=== PATIENT | male | born 1995 | race Caucasian/White ===

== ENCOUNTER 2021-10-22 19:26 | Emergency (ER) | payer BC, SELFPAY ==
--- NOTE | 2021-10-22 19:36 | USR_ITS ---
PROCEDURE INFORMATION: Exam: US Scrotum and Artery or Vein of the Abdominal and/or Reproductive Organs, Limited Scrotum Exam date and time: 10/22/2021 7:36 PM Age: 26 years old Clinical indication: Scrotum pain TECHNIQUE: Imaging protocol: Real-time ultrasound of the scrotum. Real-time duplex ultrasound scan of the arterial or venous flow with castillo scale, color Doppler flow and spectral waveform analysis with image documentation. Limited Duplex exam focused of the scrotum. Duplex images required to evaluate for torsion and other vascular conditions. COMPARISON: No relevant prior studies available. FINDINGS: Right testicle: There is normal blood flow in the right testicle. The right testicle measures 4.6 x 3.6 x 3.4 cm. Right testicular contour and parenchymal echotexture is normal. There is no mass. Left testicle: Left testicular contour and parenchymal echotexture is normal. There is no mass. There is normal blood flow in the left testicle. The left testicle measures 4.3 x 3.3 x 2.7 cm. Epididymides: The right epididymis is unremarkable. The left epididymis is unremarkable. Scrotum: There are prominent veins in the left hemiscrotum. US/US scrotum [id number] IMPRESSION: 1. Normal testicles. 2. Small left varicocele. Radiation Dose CTDIVOL = (mGy): DLP = (mGy-cm)
[2021-10-22 20:15] VITALS: BP 123/82; PULSE 129; RESP 34; TEMP 36.8; O2SAT 96; BMI 18.8
[2021-10-22 20:41] VITALS: RESP 30
[2021-10-22] MEDS: HYDROmorphone 1 mg/mL INJ 1 mL IVP (20:41)
[2021-10-22] MEDS: ondansetron 2 mg/ML SDV 2 mL 4 MG IVP (20:41)
--- NOTE | 2021-10-22 20:42 | W.ED.MALEGU ---
HPI - Male Genitourinary General: Chief complaint: Urogenital-Male Stated complaint: Pain In Scotum Time Seen by Provider: 10/22/21 20:28 History of Present Illness: Associated symptoms: Deny nausea or vomiting Review of Systems Const: Denies: fever(s), chills, body aches or change in appetite Eyes: Denies: blurry vision or eye discomfort ENMT: Denies: throat pain or dental pain Card: Denies: chest pain Resp: Denies: dyspnea GI: Denies: abdominal pain, nausea, vomiting or diarrhea : Reports: testicular pain Musc: Denies: neck pain or back pain Skin/Breast: Denies: rash Neuro: Denies: headache(s) Psych: Denies: depression Patrick/Lymph: Denies: easy bruising All/Imm: Denies: urticaria Course Vital Signs: Vital signs: Vital Signs Temperature 98.3 F 10/22/21 20:15 Pulse Rate 129 H 10/22/21 20:15 Respiratory Rate 30 H 10/22/21 20:41 Blood Pressure 123/82 10/22/21 20:15 Pulse Oximetry 96 10/22/21 20:15 MDM - Male MDM Narrative: Medical decision making narrative: Patient presents here of testicle pain does have varicocele CT shows possible obstruction to venous outflow from left kidney is no flank pain his pain is much improved here we will have him follow-up with urology start him on pain meds and have him return if worsening he understands and agrees to plan. Lab Data: Labs: Lab Results 10/22/21 10/22/21 20:20 20:20 WBC 8.8 10^3/uL 10^3/ uL (4.0-10.0) RBC 5.19 10^6/uL 10^6 /uL (4.1-5.3) Hgb 15.7 g/dL g/dL (11.7-16.6) Hct 44.3 % % (42.0-52.0) MCV 85.4 fl fl (80-94) MCH 30.3 pg pg (28.0-34.0) MCHC 35.4 g/dL g/dL (30.0-36.0) RDW 11.9 % L % (12.1-15.1) Plt Count 244 10^3/cmm 10^3 /cmm (130-400) MPV 10.5 fL H fL (7.4-10.4) Neut % (Auto) 68.2 % % Lymph % (Auto) 25.0 % % Jerome % (Auto) 4.6 % % Eos % (Auto) 1.4 % % Baso % (Auto) 0.6 % % Neut # (Auto) 5.99 10^3/uL 10^3 /uL (1.8-7.7) Lymph # (Auto) 2.2 10^3/uL 10^3/ uL (0.8-4.8) Jerome # (Auto) 0.4 10^3/uL 10^3/ uL (0.2-0.9) Eos # (Auto) 0.1 10^3/uL 10^3/ uL (0.0-0.8) Baso # (Auto) 0.1 10^3/uL 10^3/ uL (0.0-0.1) Nucleated RBC % (a uto) 0 % % Nucleated RBCs # 0.0 /100WBC /100W BC Sodium 140 mmol/L mmol/L (136-145) Potassium 3.6 mmol/L mmol/L (3.5-5.1) Chloride 101 mmol/L mmol/L (98-107) Carbon Dioxide 25 mmol/L mmol/L (22-29) Anion Gap 17.6 (5-19) BUN 12 mg/dL mg/dL (6-20) Creatinine 0.9 mg/dL mg/dL (0.7-1.2) GFR Calculation 103.7 mL/min mL/m in (90-130) Glucose 109 mg/dL mg/dL (65-115) Calculated Osmolal ity 290 mOsm/kg mOsm/ kg (285-295) Calcium 9.9 mg/dL mg/dL (8.5-10.5) Total Bilirubin 0.6 mg/dL mg/dL (0.15-1.2) AST 18 U/L U/L (0-40) ALT 21 U/L U/L (0-41) Alkaline Phosphata se 67 IU/L IU/L (40-130) Total Protein 7.7 g/dL g/dL (6.6-8.7) Albumin 4.9 g/dL g/dL (3.5-5.2) Globulin 2.8 g/dL g/dL (1.3-4.6) Imaging Data: US: Attestation: I personally reviewed and interpreted this imaging study as follows: Radiologist's impression: [facility] [place] [address] Ultrasound Report Signed Patient: Sha Harvey Unit #: [id number] : 1995 Age/Sex: 26 / M ADM Date: 10/22/21 Loc: ER Room/Bed: Attending Dr: Ordering Provider/Ordering MD: Raoul Cervantes MD Date of Service: 10/22/21 Procedure(s): US scrotum [id number] Accession Number(s): [id number] Report Number: [id number] PROCEDURE INFORMATION: Exam: US Scrotum and Artery or Vein of the Abdominal and/or Reproductive Organs, Limited Scrotum Exam date and time: 10/22/2021 7:36 PM Age: 26 years old Clinical indication: Scrotum pain TECHNIQUE: Imaging protocol: Real-time ultrasound of the scrotum. Real-time duplex ultrasound scan of the arterial or venous flow with castillo scale, color Doppler flow and spectral waveform analysis with image documentation. Limited Duplex exam focused of the scrotum. Duplex images required to evaluate for torsion and other vascular conditions. COMPARISON: No relevant prior studies available. FINDINGS: Right testicle: There is normal blood flow in the right testicle. The right testicle measures 4.6 x 3.6 x 3.4 cm. Right testicular contour and parenchymal echotexture is normal. There is no mass. Left testicle: Left testicular contour and parenchymal echotexture is normal. There is no mass. There is normal blood flow in the left testicle. The left testicle measures 4.3 x 3.3 x 2.7 cm. Epididymides: The right epididymis is unremarkable. The left epididymis is unremarkable. Scrotum: There are prominent veins in the left hemiscrotum. US/US scrotum [id number] IMPRESSION: 1. Normal testicles. 2. Small left varicocele. Radiation Dose CTDIVOL = (mGy): DLP = (mGy-cm) Dictated By: Miles Ortiz MD Signed By: Miles Ortiz MD Signed Date/Time: 10/22/212125 DD/ 35 CT Abd/Pel: Radiologist's impression: [facility] [address] [place] [address] CT Scan Report Signed Patient: Sha Harvey Unit #: [id number] : 1995 Age/Sex: 26 / M ADM Date: 10/22/21 Loc: ER Room/Bed: Attending Dr: Ordering Provider/Ordering MD: Raoul Cervantes MD Date of Service: 10/22/21 Procedure(s): CT abdomen pelvis w con* [id number] Accession Number(s): [id number] Report Number: [id number] PROCEDURE INFORMATION: Exam: CT Abdomen And Pelvis With Contrast Exam date and time: 10/22/2021 9:10 PM Age: 26 years old Clinical indication: Nausea and vomiting; Other: Scrotal pain; Patient HX: Severe left testicular pain with n/v. ; Additional info: Abd pain TECHNIQUE: Imaging protocol: Computed tomography of the abdomen and pelvis with contrast. Radiation optimization: All CT scans at this facility use at least one of these dose optimization techniques: automated exposure control; mA and/or kV adjustment per patient size (includes targeted exams where dose is matched to clinical indication); or iterative reconstruction. Contrast material: OMNI 300; Contrast volume: 95 ml; Contrast route: INTRAVENOUS (IV); COMPARISON: US scrotum [id number] 10/22/2021 9:09 PM RADIATION DOSE METRICS: Total DLP (mGy-cm): 1196.98 FINDINGS: Lungs: Lung bases are clear. Liver: The liver is normal. Gallbladder and bile ducts: The gallbladder is normal. There is no biliary dilation. Pancreas: The pancreas is unremarkable. Spleen: The spleen is unremarkable. Adrenal glands: The adrenal glands are unremarkable. Kidneys and ureters: There is a mildly delayed nephrogram on the left. There is mild asymmetric enlargement of the left kidney. There is no hydronephrosis or stones. Stomach and bowel: The stomach is unremarkable. The small bowel is nondilated. The colon is unremarkable. Appendix: The appendix is normal. Intraperitoneal space: There is no free air or significant intraperitoneal free fluid. Vasculature: The aorta is unremarkable. There is no aneurysm. There are venous collaterals in the left renal hilum. Small left varicocele is suspected. There is asymmetric contrast reflux into the left gonadal vein. 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 See axial series 2, image 21. Lymph nodes: There is no lymphadenopathy in the retroperitoneum, mesentery, pelvis or inguinal regions. Urinary bladder: The urinary bladder is unremarkable. Reproductive: The prostate and seminal vesicles are unremarkable. Bones/joints: Bones are unremarkable. Soft tissues: The abdominal wall is intact. CT/CT abdomen pelvis w con* [id number] IMPRESSION: 1. Suspect partial obstruction to venous outflow from the left kidney. 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 There are venous collaterals in the left renal hilum and contrast reflux into the left gonadal vein with a small left varicocele. 2. No renal vein thrombosis. Radiation Dose CTDIVOL = (mGy): DLP = 1196.98 (mGy-cm) Dictated By: Miles Ortiz MD Signed By: Miles Ortiz MD Signed Date/Time: 10/22/212154 DD/ 09 Discharge Plan Discharge Patient Disposition: Home Clinical Impression: Left varicocele Condition: Stable Prescriptions: New hydrocodone-acetaminophen 5-325 mg tablet 1 tab PO Q6H PRN (Reason: pain) Qty: 14 RF: 0 Discharge Orders: Discharge ED (Routine); Ordered 10/22/21 Ordered By: Raoul Cervantes Referrals: Leah Saldana FNP-C [Primary Care Provider] - Cory Hernández MD [Physician] - 1-3 days Discharge Diet: Advance as tolerated Discharge Activity: Resume usual activity Patient Instructions: Varicocele (ED), Testicle Pain (ED), Opioid Safety Coding Level of Care Code ED Distribution Superintendent for Rosalind Duarte
[2021-10-22 21:10] LABS: Basophils # 0.1 10^3/uL (0.0-0.1); Basophils % 0.6 %; Eosinophils # 0.1 10^3/uL (0.0-0.8); Eosinophils % 1.4 %; Hematocrit 44.3 % (42.0-52.0); Hemoglobin 15.7 g/dL (11.7-16.6); Lymphocytes # 2.2 10^3/uL (0.8-4.8); Mean Corpuscular HGB Conc 35.4 g/dL (30.0-36.0); Mean Corpuscular Hemoglobin 30.3 pg (28.0-34.0); Mean Corpuscular Volume 85.4 fl (80-94); Mean Platelet Volume 10.5 fL (7.4-10.4); Monocytes # 0.4 10^3/uL (0.2-0.9); Monocytes % 4.6 %; Neutrophils # 5.99 10^3/uL (1.8-7.7); Neutrophils % 68.2 %; Nucleated Red Blood Cells % 0 %; Platelet Count 244 10^3/cmm (130-400); Red Blood Count 5.19 10^6/uL (4.1-5.3); Red Cell Distribution Width 11.9 % (12.1-15.1); White Blood Count 8.8 10^3/uL (4.0-10.0)
--- NOTE | 2021-10-22 21:10 | CTR_ITS ---
PROCEDURE INFORMATION: Exam: CT Abdomen And Pelvis With Contrast Exam date and time: 10/22/2021 9:10 PM Age: 26 years old Clinical indication: Nausea and vomiting; Other: Scrotal pain; Patient HX: Severe left testicular pain with n/v. ; Additional info: Abd pain TECHNIQUE: Imaging protocol: Computed tomography of the abdomen and pelvis with contrast. Radiation optimization: All CT scans at this facility use at least one of these dose optimization techniques: automated exposure control; mA and/or kV adjustment per patient size (includes targeted exams where dose is matched to clinical indication); or iterative reconstruction. Contrast material: OMNI 300; Contrast volume: 95 ml; Contrast route: INTRAVENOUS (IV); COMPARISON: US scrotum [id number] 10/22/2021 9:09 PM RADIATION DOSE METRICS: Total DLP (mGy-cm): 1196.98 FINDINGS: Lungs: Lung bases are clear. Liver: The liver is normal. Gallbladder and bile ducts: The gallbladder is normal. There is no biliary dilation. Pancreas: The pancreas is unremarkable. Spleen: The spleen is unremarkable. Adrenal glands: The adrenal glands are unremarkable. Kidneys and ureters: There is a mildly delayed nephrogram on the left. There is mild asymmetric enlargement of the left kidney. There is no hydronephrosis or stones. Stomach and bowel: The stomach is unremarkable. The small bowel is nondilated. The colon is unremarkable. Appendix: The appendix is normal. Intraperitoneal space: There is no free air or significant intraperitoneal free fluid. Vasculature: The aorta is unremarkable. There is no aneurysm. There are venous collaterals in the left renal hilum. Small left varicocele is suspected. There is asymmetric contrast reflux into the left gonadal vein. 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 See axial series 2, image 21. Lymph nodes: There is no lymphadenopathy in the retroperitoneum, mesentery, pelvis or inguinal regions. Urinary bladder: The urinary bladder is unremarkable. Reproductive: The prostate and seminal vesicles are unremarkable. Bones/joints: Bones are unremarkable. Soft tissues: The abdominal wall is intact. CT/CT abdomen pelvis w con* [id number] IMPRESSION: 1. Suspect partial obstruction to venous outflow from the left kidney. 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 There are venous collaterals in the left renal hilum and contrast reflux into the left gonadal vein with a small left varicocele. 2. No renal vein thrombosis. Radiation Dose CTDIVOL = (mGy): DLP = 1196.98 (mGy-cm)
[2021-10-22 21:20] LABS: Alanine Aminotransferase 21 U/L (0-41); Albumin Level 4.9 g/dL (3.5-5.2); Alkaline Phosphatase 67 IU/L (40-130); Anion Gap 17.6 (5-19); Aspartate Amino Transferase 18 U/L (0-40); Blood Urea Nitrogen 12 mg/dL (6-20); Calcium 9.9 mg/dL (8.5-10.5); Carbon Dioxide 25 mmol/L (22-29); Chloride 101 mmol/L (98-107); Globulin 2.8 g/dL (1.3-4.6); Glomerular Filtration Rate 103.7 mL/min (90-130); Glucose 109 mg/dL (65-115); Osmolality Calculated 290 mOsm/kg (285-295); Potassium 3.6 mmol/L (3.5-5.1); Sodium 140 mmol/L (136-145); Total Bilirubin 0.6 mg/dL (0.15-1.2); Total Protein 7.7 g/dL (6.6-8.7)
[2021-10-22] MEDS: iohexol 300 mg/mL 100 mL Btl IV (21:25)
[2021-10-22] MEDS: sodium chloride 0.9% 1,000 ML 999 ML IV (21:46)
[2021-10-22 22:35] VITALS: BP 130/74; PULSE 81; RESP 18; O2SAT 98
--- NOTE | 2021-10-23 07:27 | DCPLANNER ---
operations manager had message to schedule a follow up appointment for patient with Dr. Hernández. operations manager emailed patients information to the Cesar Martínez and Julie in Dr. Urbina office. Patients information will be printed and reviewed. Clinic will call patient with appointment information.
--- NOTE | 2021-11-02 07:38 | DCPLANNER ---
Patient has a follow up appointment scheduled for Tuesday, November 16, [address] at 8:[address] Hernández. Clinic will call patient with appointment information.
--- NOTE | 2021-11-19 15:48 | DCPLANNER ---
Patient had a follow up appointment scheduled with Dr. Hernández - patient did attend appointment.
== END 2021-10-22 22:48 | disposition home or self-care (01) ==
PROVIDERS: Emergency Provider Emergency Medicine; PCP Nurse Practitioner
DX: I86.1 Scrotal varices (principal)
CPT/HCPCS: 74177; 76870; 80053; 85025; 96361; 96374; 96375; 99283; J1170; J2405; J7030; Q9967

== ENCOUNTER → 2021-11-16 07:41 | Outpatient (BNVA) | payer BC, SELFPAY | PROVIDERS: PCP Internal Medicine; Visit Provider Urology | DX: I86.1 Scrotal varices (principal) | CPT/HCPCS: 81003 ==